=== PATIENT | female | born 1980 | race Caucasian/White ===

== ENCOUNTER 2016-05-24 18:01 | Emergency (ER) | payer OTHER ==
[~2016-05-24 18:01] MED LIST: ADDERALL15 MG PO; ALPRAZOLAM0.5 MG PO; ASACOL HD800 MG PO; CARAFATE EQUIVAL1 GM PO; CARBAMAZEPINE100 M1 PO; CELEBREX200 MG PO; HYCET1 ML PO; IBUPROFEN400 MG PO; IMITREX100 MG PO; MECLIZINE HCL25 M1 PO; MIRTAZAPINE PO; NICOTINE T21 MG/24 H TOP; PANTOPRAZOLE SO40 MG PO; PERCOCET1 TA2 PO; PHENERGAN EQUIV25 M1 PR; PROTONIX40 MG PO; TEGRETOL200 MG PO
--- NOTE | 2016-05-24 18:35 | ED CLINICAL REPORT ---
Clinical Report - Physicians/Mid Levels [facility] [address] [place] [address] 05/24/2016 18:02 Patient: SHYANN MONET Time Seen: 18:10; initial patient contact, initial documentation, patient care assumed. Arrived- By private vehicle. Historian- patient. HISTORY OF PRESENT ILLNESS Chief Complaint: HEADACHE and MIGRAINE HEADACHE. Is still present. This started today. It was abrupt in onset and has been constant. It is described as similar to previous headaches, "pain" and diffuse. Has had neck pain and located in the facial region. At its maximum, severity described as severe. When seen in the E.D., severity described as severe. The patient has had severe photophobia of the right eye and left eye. There has been no eye redness or discharge, matting or foreign body sensation. She has had nausea. She has had vomiting. The vomiting has occurred numerous times and has been bilious. No feculent emesis, blood-tinged emesis, coffee-grounds emesis, frankly bloody emesis or unusually dark emesis. No preceding symptoms, blurred vision, numbness or weakness. No recent travel. Similar symptoms previously: Occasionally, as bad. Recent medical care: Not recently seen/assessed. REVIEW OF SYSTEMS No fever, sinus pressure, ear pain, sore throat or head injury. No difficulty breathing or abdominal pain. All systems otherwise negative, except as recorded above. PAST HISTORY See nurses notes. PROBLEMS: Nausea. Abdominal Pain. Vomiting. Migraine Headache. Otitis Externa. ADHD - Attention Deficit Hyperactivity Disorder. Endometrioseis. --18:06 Cassie Aguiar R.N. ADDITIONAL SURGERIES: Appendectomy. Cholecystectomy. Laparoscopy. Tonsillectomy. --18:06 Cassie Aguiar R.N. SOCIAL HISTORY Heavy tobacco smoker. Occasional alcohol use. No drug use. No recent travel. Is a local resident. She lives with spouse. FAMILY HISTORY Negative. ADDITIONAL NOTES The nursing notes have been reviewed with agreement regarding the chief complaint, HPI, ROS, PMH and patient medications and allergies. PHYSICAL EXAM Vital Signs: 05/24/2016 18:05 BP: 136/76. HR: 97. RR: 18. O2 saturation: 98%. Temp: 97.5 F. Pain level now: 910. Have been reviewed as normal and appear to be correct. Appearance: Alert. No acute distress. Eyes: Pupils equal, round and reactive to light. Eyes normal inspection. ENT: Ears normal. Nose normal. Pharynx normal. Neck: Normal inspection. Neck supple. CVS: Normal heart rate and rhythm. Heart sounds normal. Pulses normal. Respiratory: No respiratory distress. Breath sounds normal. Abdomen: Soft and nontender. No organomegaly. Back: Normal inspection. Skin: Skin warm and dry. Normal skin color. No rash. Normal skin turgor. Extremities: Extremities exhibit normal ROM. No lower extremity edema. Neuro: Oriented X 3. Alert. Mood/affect normal. Speech normal. Cranial nerves normal (as tested). No cerebellar findings. No motor deficit. No sensory deficit. PROGRESS AND PROCEDURES Patient counseled in person regarding the patient's stable condition and diagnosis. Differential Diagnosis: I considered migraine, cluster headache, subarachnoid hemorrhage, intracranial bleed, vascular malformation, cerebral aneurysm, vascular dissection, vasculitis, temporal arteritis, encephalitis, brain abscess, sinusitis, dental etiology, influenza, viral syndrome, analgesic abuse, hypoglycemia and trigeminal neuralgia as a possible cause of headache in this patient. This is a partial list of diagnoses considered. Above considerations are based on history and physical exam. Differential diagnosis was discussed with patient. Disposition: Discharged home in good and improved condition (18:35). Condition: good and stable. CLINICAL IMPRESSION Acute migraine headache without aura- refractory to treatment. No status migrainosus. Not poorly controlled. INSTRUCTIONS Warnings: GENERAL WARNINGS: Return or contact your physician immediately if your condition worsens or changes unexpectedly, if not improving as expected, or if other problems arise. SPECIFICALLY, return if you develop fever, vomiting, numbness, weakness, difficulty thinking, visual disturbances, fainting or extreme fatigue. Prescription Medications: Zofran 4 mg: Take 1 orally every six hours as needed for nausea/vomiting. Dispense ten (10). No refills. Substitution is permissible. Fioricet: Take 1-2 orally every 4 hours as needed for headache. Dispense twenty (20). No refills. Substitution is permissible. Follow-up: Follow up with your doctor in about three days as needed. Call for an appointment. Summary of care provided to patient. Understanding of the discharge instructions verbalized by patient. (Electronically signed by Berna Bui A.R.N.P. 05/24/2016 19:45)
--- NOTE | 2016-05-24 18:35 | ED ORDER SUMMARY ---
..... Patient: SHYANN MONET OrderSheet VisitID: [id number] [place] [address] 36y, F Registration Date/Time: 05/24/2016 ORDER SHEET Weight: 63.5 kg (stated) Allergies: Aspirin GENERAL ORDERS: MEDICATION ORDERS: Toradol IM 60 mg (NOW) (18:19 05/24/2016 HBivens A.R.N.P.) (18:45 JSanders R.N.) Benadryl IM 50 mg (NOW) (18:20 05/24/2016 HBivens A.R.N.P.) (18:33 JSanders R.N.) - (Reglan 10mg im stat please) (18:20 05/24/2016 HBivens A.R.N.P.) (18:30 JSanders R.N.) IV FLUIDS: ORDER SHEET NOTES: [Electronically signed by Cassie Aguiar R.N. (19:17 05/24/2016)] [Electronically signed by Berna BuiRMohinderN.PMohinder (19:45 05/24/2016)] [Electronically locked/signed by Cassie Aguiar R.N. (19:17 05/24/2016)]
--- NOTE | 2016-05-24 18:35 | ED ORDER SUMMARY ---
..... Patient: SHYANN MONET OrderSheet [facility] VisitID: [id number] [place] [address] 36y, F Registration Date/Time: 05/24/2016 ORDER SHEET Weight: 63.5 kg (stated) Allergies: Aspirin GENERAL ORDERS: MEDICATION ORDERS: Toradol IM 60 mg (NOW) (18:19 05/24/2016 HBivens A.R.N.P.) (18:45 JSanders R.N.) Benadryl IM 50 mg (NOW) (18:20 05/24/2016 HBivens A.R.N.P.) (18:33 JSanders R.N.) - (Reglan 10mg im stat please) (18:20 05/24/2016 HBivens A.R.N.P.) (18:30 JSanders R.N.) IV FLUIDS: ORDER SHEET NOTES: [Electronically signed by Cassie Aguiar R.N. (19:17 05/24/2016)] [Electronically signed by Berna BuiRMohinderN.PMohinder (19:45 05/24/2016)] [Electronically locked/signed by Cassie Aguiar R.N. (19:17 05/24/2016)]
--- NOTE | 2016-05-24 18:35 | ED NURSING NOTES ---
Clinical Report - Nurses [facility] [address] [place] [address] 05/24/2016 18:02 Patient: SHYANN MONET TRIAGE Triage time 18:May 24 2016. Acuity: LEVEL 4. Chief Complaint: MIGRAINE HEADACHE. SEPSIS SCREEN: Sepsis Screen. Negative (no infection suspected/documented). ELLEN COMA SCORE: [place] Coma Scale: 15- eyes open spontaneously (4); best verbal response- oriented x 4 (5); best motor response- obeys commands (6). --18:09 Cassie Aguiar R.N. 18:05 05/24/16. BP: 136/76 (regular adult cuff) taken on the left arm, while lying. HR: 97. RR: 18. O2 saturation: 98% on room air. Temp: 97.5 F (oral). Pain level now: 11/04. --18:09 Cassie Aguiar R.N. Weight: 63.5 kg stated. Height/Length: 67 inches Per Patient. BMI: 21.9. --18:08 Cassie Aguiar R.N. Medications None. --18:06 Cassie Aguiar R.N. Allergies Aspirin. --18:06 Cassie Aguiar R.N. History Arrived by private vehicle. Historian: family. Accompanied by family. This started today 9 AM this morning. She has had nausea and vomiting. 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 PAST MEDICAL HX: Headaches. Immunizations: up-to-date. Last normal menstrual period- 1 weeks ago. SOCIAL HX: Current every day heavy tobacco smoker- 1 pack per day. Occasional alcohol use; consumes wine. No infectious disease exposure. ABUSE ASSESSMENT: No report of abuse. --18:09 Cassie Aguiar R.N. PROBLEMS: Nausea. Abdominal Pain. Vomiting. Migraine Headache. Otitis Externa. ADHD - Attention Deficit Hyperactivity Disorder. Endometrioseis. --18:06 Cassie Aguiar R.N. ADDITIONAL SURGERIES: Appendectomy. Cholecystectomy. Laparoscopy. Tonsillectomy. --18:06 Cassie Aguiar R.N. Interventions ID band on patient. To treatment room. --18:09 Cassie Aguiar R.N. PHYSICAL ASSESSMENT 18:10 05/24/16. To room via wheelchair. GENERAL / NEURO / PSYCH: Oriented X 4. Appears in pain. Speech within normal limits. HEENT: Pupils equal, round and reactive to light. RESPIRATORY: Respirations not labored. CVS: Capillary refill less than 2 seconds. GI / : The patient has had constant nausea. Emesis noted. Has vomited numerous times (few hours ago). Abdomen soft and nontender. SKIN: Skin is warm. --18:10 Cassie Aguiar R.N. NURSING PROGRESS NOTES 18:11 05/24/16. The plan of care for this patient has been created. Patient gowned. Head of bed elevated. Reassurance given. Lights dimmed. Two patient identifiers checked. Call light placed in reach. Side rails up x 1. Bed placed in lowest position. Brakes of bed on. Patient ready for evaluation- chart flagged and ED physician notified. --18:11 Cassie Aguiar R.N. 18:30 05/24/2016 Reglan (Metoclopramide HCl) IM 10 mg given. Given in the right ventral gluteus. Allergies verified and confirmed 5 rights. --18:30 Cassie Aguiar R.N. 18:33 05/24/2016 Benadryl (DiphenhydrAMINE HCl) IM 50 mg given. Given in the right gluteus fabien. Allergies verified, confirmed 5 rights and sedative warning given to the patient. --18:33 Cassie Aguiar R.N. ( mom sitting by patients bedside supportive). --18:34 Cassie Aguiar R.N. 18:45 05/24/2016 Toradol (Ketorolac Tromethamine) IM 60 mg given. Given in the right ventral gluteus. Allergies verified and confirmed 5 rights. --18:45 Cassie Aguiar R.N. DISPOSITION / DISCHARGE 19:15 05/24/16. The patient left prior to discharge education being provided. ( Patient left prior to discharge). --19:15 Cassie Aguiar R.N. ( Went to discharge patient and room was empty, no sign of mother and patient). --19:16 Cassie Aguiar R.N. Locked/Released at 05/24/2016 19:17 by Cassie Aguiar R.N.
--- NOTE | 2016-05-24 18:35 | ED NURSING NOTES ---
Clinical Report - Nurses [facility] [address] [place] [address] 05/24/2016 18:02 Patient: SHYANN MONET TRIAGE Triage time 18:May 24 2016. Acuity: LEVEL 4. Chief Complaint: MIGRAINE HEADACHE. SEPSIS SCREEN: Sepsis Screen. Negative (no infection suspected/documented). ELLEN COMA SCORE: [place] Coma Scale: 15- eyes open spontaneously (4); best verbal response- oriented x 4 (5); best motor response- obeys commands (6). --18:09 Cassie Aguiar R.N. 18:05 05/24/16. BP: 136/76 (regular adult cuff) taken on the left arm, while lying. HR: 97. RR: 18. O2 saturation: 98% on room air. Temp: 97.5 F (oral). Pain level now: 11/04. --18:09 Cassie Aguiar R.N. Weight: 63.5 kg stated. Height/Length: 67 inches Per Patient. BMI: 21.9. --18:08 Cassie Aguiar R.N. Medications None. --18:06 Cassie Aguiar R.N. Allergies Aspirin. --18:06 Cassie Aguiar R.N. History Arrived by private vehicle. Historian: family. Accompanied by family. This started today 9 AM this morning. She has had nausea and vomiting. 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 PAST MEDICAL HX: Headaches. Immunizations: up-to-date. Last normal menstrual period- 1 weeks ago. SOCIAL HX: Current every day heavy tobacco smoker- 1 pack per day. Occasional alcohol use; consumes wine. No infectious disease exposure. ABUSE ASSESSMENT: No report of abuse. --18:09 Cassie Aguiar R.N. PROBLEMS: Nausea. Abdominal Pain. Vomiting. Migraine Headache. Otitis Externa. ADHD - Attention Deficit Hyperactivity Disorder. Endometrioseis. --18:06 Cassie Aguiar R.N. ADDITIONAL SURGERIES: Appendectomy. Cholecystectomy. Laparoscopy. Tonsillectomy. --18:06 Cassie Aguiar R.N. Interventions ID band on patient. To treatment room. --18:09 Cassie Aguiar R.N. PHYSICAL ASSESSMENT 18:10 05/24/16. To room via wheelchair. GENERAL / NEURO / PSYCH: Oriented X 4. Appears in pain. Speech within normal limits. HEENT: Pupils equal, round and reactive to light. RESPIRATORY: Respirations not labored. CVS: Capillary refill less than 2 seconds. GI / : The patient has had constant nausea. Emesis noted. Has vomited numerous times (few hours ago). Abdomen soft and nontender. SKIN: Skin is warm. --18:10 Cassie Aguiar R.N. NURSING PROGRESS NOTES 18:11 05/24/16. The plan of care for this patient has been created. Patient gowned. Head of bed elevated. Reassurance given. Lights dimmed. Two patient identifiers checked. Call light placed in reach. Side rails up x 1. Bed placed in lowest position. Brakes of bed on. Patient ready for evaluation- chart flagged and ED physician notified. --18:11 Cassie Aguiar R.N. 18:30 05/24/2016 Reglan (Metoclopramide HCl) IM 10 mg given. Given in the right ventral gluteus. Allergies verified and confirmed 5 rights. --18:30 Cassie Aguiar R.N. 18:33 05/24/2016 Benadryl (DiphenhydrAMINE HCl) IM 50 mg given. Given in the right gluteus fabien. Allergies verified, confirmed 5 rights and sedative warning given to the patient. --18:33 Cassie Aguiar R.N. ( mom sitting by patients bedside supportive). --18:34 Cassie Aguiar R.N. 18:45 05/24/2016 Toradol (Ketorolac Tromethamine) IM 60 mg given. Given in the right ventral gluteus. Allergies verified and confirmed 5 rights. --18:45 Cassie Aguiar R.N. DISPOSITION / DISCHARGE 19:15 05/24/16. The patient left prior to discharge education being provided. ( Patient left prior to discharge). --19:15 Cassie Aguiar R.N. ( Went to discharge patient and room was empty, no sign of mother and patient). --19:16 Cassie Aguiar R.N. Locked/Released at 05/24/2016 19:17 by Cassie Aguiar R.N.
--- NOTE | 2016-05-24 19:45 | ED MED RECONCILIATION SUMMARY ---
Patient: SHYANN MONET Medication Reconciliation Report [facility] VisitID: [id number] [address] [place] [address] 36y, F Registration Date/Time: 05/24/2016 Weight: 63.5 kg Height/Length: 67 in. BMI: 21.9 ALLERGIES: Aspirin The patient's Home Medications are listed below: NONE. The source(s) of the original Home Medication information: Not obtained. The following Medications were given to the patient in the Emergency Department: Reglan [IM] IM 10 mg, administered: 05/24/2016 6:30:00 PM Benadryl [IM] IM 50 mg, administered: 05/24/2016 6:33:00 PM Toradol [IM] IM 60 mg, administered: 05/24/2016 6:45:00 PM The following Medications were prescribed to the patient: Zofran 4 mg: Take 1 orally every six hours as needed for nausea/vomiting. Dispense ten (10). No refills. Substitution is permissible. -- Berna Bui, A.R.N.P. Fioricet: Take 1-2 orally every 4 hours as needed for headache. Dispense twenty (20). No refills. Substitution is permissible. -- Berna Bui A.R.N.P.
--- NOTE | 2016-05-24 19:45 | ED MAR SUMMARY ---
..... Medication Administration Record [facility] [address] [place] [address] Patient: SHYANN MONET Visit ID: [id number] 36y, F Weight: 63.5 kg Height/Length: 67 in BMI: 21.9 ALLERGIES: Aspirin Given 18:30 05/24/2016 Cassie Aguiar RMoon Medication Administered: REGLAN [IM] (METOCLOPRAMIDE HCL), Dose: 10 mg IM. Medication Ordered: - (Reglan 10mg im stat please). Given 18:33 05/24/2016 Cassie Aguiar RMohinderNMohinder Medication Administered: BENADRYL [IM] (DIPHENHYDRAMINE HCL), Dose: 50 mg IM. Medication Ordered: Benadryl IM 50 mg (NOW). Given 18:45 05/24/2016 Cassie Aguiar, RMohinderNMohinder Medication Administered: TORADOL [IM] (KETOROLAC TROMETHAMINE), Dose: 60 mg IM. Medication Ordered: Toradol IM 60 mg (NOW).
--- NOTE | 2016-05-24 19:45 | ED MED RECONCILIATION SUMMARY ---
Patient: SHYANN MONET Medication Reconciliation Report [facility] VisitID: [id number] [address] [place] [address] 36y, F Registration Date/Time: 05/24/2016 Weight: 63.5 kg Height/Length: 67 in. BMI: 21.9 ALLERGIES: Aspirin The patient's Home Medications are listed below: NONE. The source(s) of the original Home Medication information: Not obtained. The following Medications were given to the patient in the Emergency Department: Reglan [IM] IM 10 mg, administered: 05/24/2016 6:30:00 PM Benadryl [IM] IM 50 mg, administered: 05/24/2016 6:33:00 PM Toradol [IM] IM 60 mg, administered: 05/24/2016 6:45:00 PM The following Medications were prescribed to the patient: Zofran 4 mg: Take 1 orally every six hours as needed for nausea/vomiting. Dispense ten (10). No refills. Substitution is permissible. -- Berna Bui, A.R.N.P. Fioricet: Take 1-2 orally every 4 hours as needed for headache. Dispense twenty (20). No refills. Substitution is permissible. -- Berna Bui A.R.N.P.
--- NOTE | 2016-05-24 19:45 | ED DISCHARGE INSTRUCTIONS ---
Patient: SHYANN MONET General Instructions [facility] VisitID: [id number] [place] [address] 36y, F Registration Date/Time: 05/24/2016 Acute migraine headache without aura- refractory to treatment. No status migrainosus. Not poorly controlled. INSTRUCTIONS Warnings: GENERAL WARNINGS: Return or contact your physician immediately if your condition worsens or changes unexpectedly, if not improving as expected, or if other problems arise. SPECIFICALLY, return if you develop fever, vomiting, numbness, weakness, difficulty thinking, visual disturbances, fainting or extreme fatigue. Prescription Medications: Zofran 4 mg: Take 1 orally every six hours as needed for nausea/vomiting. Dispense ten (10). No refills. Substitution is permissible. Fioricet: Take 1-2 orally every 4 hours as needed for headache. Dispense twenty (20). No refills. Substitution is permissible. Follow-up: Follow up with your doctor in about three days as needed. Call for an appointment. Summary of care provided to patient. Understanding of the discharge instructions verbalized by patient. ADDITIONAL INFORMATION Migraine Headache Migraine headaches are related to changes in blood flow to the brain. This causes throbbing or constant pain on one or both sides of the head. The pain may last from a few hours to several days. There is usually nausea, vomiting, sensitivity to light and sound, and blurred vision. A migraine attack may be triggered by emotional stress, hormone changes during the menstrual cycle, oral contraceptives, alcohol use, certain foods containing tyramine, eye strain, weather changes, missing meals, or too little or too much sleep. Home Care For This Headache: 1) If you were given pain medicine for this headache, do not drive yourself home . Arrange for a ride, instead. When you get home, try to sleep. You should feel much better when you wake up. 2) Migraine headaches may improve with an ice pack on the forehead or at the base of the skull. Heat to the back of your neck may relieve any neck spasm. 3) Drink only clear liquids or eat a very light diet to avoid nausea/vomiting until symptoms improve. Preventing Future Headaches: 1) Pay attention to those factors that seem to trigger your headache. Try to avoid them when you can. If you have frequent headaches, it is useful to keep a diary of what you were doing, feeling or eating in the hours before each attack. Show this to your doctor to help find the cause of your headaches. a) If you feel that stress is a factor in your headaches, look at the sources of stress in your life. Find ways to release the build-up of those stresses by using regular exercise, relaxation methods (yoga, meditation), bio-feedback or simply taking time-out for yourself. For more information about this, consult your doctor or go to a local bookstore and review books and tapes on this subject. b) Tyramine is a substance present in the following foods : chocolate, yogurt, all cheeses except cottage cheese and cream cheese. smoked or pickled fish and meat (including penn, caviar, bologna, pepperoni, salami), liver, avocados, bananas, figs, raisins, and red wine. Be aware that these foods may trigger a migraine in some persons. Try taking these foods out of your diet for 1-2 months to see if this reduces headache frequency. Treating Future Attacks: 1) At the first sign of a headache, take time out if possible. Find a quiet, dark, comfortable place to sit or lie down. Let yourself relax or sleep. 2) An ice pack on the forehead or area of greatest pain may help. If you are having muscle spasm and tightness of the neck, a heating pad and massage to this area may be helpful. 3) If you have been prescribed a medicine to stop a migraine headache, use this at the very first warning sign of the headache (aura or initial pain) for best results. Follow Up with your doctor if the headache is not better within the next 24 hours. If you have frequent headaches you should discuss a treatment plan with your primary care doctor. Ask if you can have medicine to take at home the next time you get a bad headache. Poorly controlled chronic headaches may require a referral to a neurologist (headache specialist). Get Prompt Medical Attention if any of the following occur: Your head pain gets worse, or does not improve within 24 hours Repeated vomiting (cant keep liquids down) Sinus or ear or throat pain (not already reported) Fever of 100.4 F (38 C) or higher, or as directed by your healthcare provider Stiff neck Extreme drowsiness, confusion or fainting Dizziness, vertigo (dizziness with spinning sensation) Weakness of an arm or leg or one side of the face Difficulty with speech or vision Ondansetron Oral disintegrating tablet What is this medicine? ONDANSETRON (on RENETTA se tavon) is used to treat nausea and vomiting caused by chemotherapy. It is also used to prevent or treat nausea and vomiting after surgery. How should I use this medicine? These tablets are made to dissolve in the mouth. Do not try to push the tablet through the foil backing. With dry hands, peel away the foil backing and gently remove the tablet. Place the tablet in the mouth and allow it to dissolve, then swallow. While you may take these tablets with water, it is not necessary to do so. Talk to your finance executive regarding the use of this medicine in children. Special care may be needed. What side effects may I notice from receiving this medicine? Side effects that you should report to your doctor or health acute care nursing assistant as soon as possible: allergic reactions like skin rash, itching or hives, swelling of the face, lips, or tongue breathing problems dizziness fast or irregular heartbeat feeling faint or lightheaded, falls fever and chills swelling of the hands and feet tightness in the chest Side effects that usually do not require medical attention (report to your doctor or health acute care nursing assistant if they continue or are bothersome): constipation or diarrhea headache What may interact with this medicine? Do not take this medicine with any of the following medications: -apomorphine -cisapride -dofetilide -dronedarone -pimozide -thioridazine -ziprasidone This medicine may also interact with the following medications: -carbamazepine -phenytoin -rifampicin -tramadol -other medicines that prolong the QT interval (cause an abnormal heart rhythm) What if I miss a dose? If you miss a dose, take it as soon as you can. If it is almost time for your next dose, take only that dose. Do not take double or extra doses. Where should I keep my medicine? Keep out of the reach of children. Store between 2 and 30 degrees C (36 and 86 degrees F). Throw away any unused medicine after the expiration date. What should I tell my health care provider before I take this medicine? They need to know if you have any of these conditions: heart disease history of irregular heartbeat liver disease low levels of magnesium or potassium in the blood an unusual or allergic reaction to ondansetron, granisetron, other medicines, foods, dyes, or preservatives or trying to get breast-feeding What should I watch for while using this medicine? Check with your doctor or health acute care nursing assistant as soon as you can if you have any sign of an allergic reaction. Butalbital, Acetaminophen, Caffeine Oral tablet What is this medicine? ACETAMINOPHEN; BUTALBITAL; CAFFEINE (a set a JONATHAN guilherme fen; byoo JOSE bi jose; KAF een) is a pain reliever. It is used to treat tension headaches. How should I use this medicine? Take this medicine by mouth with a full glass of water. Follow the directions on the prescription label. If the medicine upsets your stomach, take the medicine with food or milk. Do not take more than you are told to take. Talk to your finance executive regarding the use of this medicine in children. Special care may be needed. What side effects may I notice from receiving this medicine? Side effects that you should report to your doctor or health acute care nursing assistant as soon as possible: allergic reactions like skin rash, itching or hives, swelling of the face, lips, or tongue breathing problems confusion feeling faint or lightheaded, falls redness, blistering, peeling or loosening of the skin, including inside the mouth seizure stomach pain yellowing of the eyes or skin Side effects that usually do not require medical attention (report to your doctor or health acute care nursing assistant if they continue or are bothersome): constipation nausea, vomiting What may interact with this medicine? alcohol or medicines that contain alcohol antidepressants, especially MAOIs like isocarboxazid, phenelzine, tranylcypromine, and selegiline antihistamines benzodiazepines carbamazepine isoniazid medicines for pain like pentazocine, buprenorphine, butorphanol, nalbuphine, tramadol, and propoxyphene muscle relaxants naltrexone phenobarbital, phenytoin, and fosphenytoin phenothiazines like perphenazine, thioridazine, chlorpromazine, mesoridazine, fluphenazine, prochlorperazine, promazine, and trifluoperazine voriconazole What if I miss a dose? If you miss a dose, take it as soon as you can. If it is almost time for your next dose, take only that dose. Do not take double or extra doses. Where should I keep my medicine? Keep out of the reach of children. This medicine can be abused. Keep your medicine in a safe place to protect it from theft. Do not share this medicine with anyone. Selling or giving away this medicine is dangerous and against the law. Store at room temperature between 15 and 30 degrees C (59 and 86 degrees F). Keep container tightly closed. Protect from light. Throw away any unused medicine after the expiration date. What should I tell my health care provider before I take this medicine? They need to know if you have any of these conditions: drink more than 3 alcohol-containing drinks per day drug abuse or addiction heart or circulation problems kidney disease or problems going to the bathroom liver disease lung disease, asthma, or breathing problems porphyria an unusual or allergic reaction to acetaminophen, butalbital or other barbiturates, caffeine, other medicines, foods, dyes, or preservatives or trying to get breast-feeding What should I watch for while using this medicine? Tell your doctor or health acute care nursing assistant if your pain does not go away, if it gets worse, or if you have new or a different type of pain. You may develop tolerance to the medicine. Tolerance means that you will need a higher dose of the medicine for pain relief. Tolerance is normal and is expected if you take the medicine for a long time. Do not suddenly stop taking your medicine because you may develop a severe reaction. Your body becomes used to the medicine. This does NOT mean you are addicted. Addiction is a behavior related to getting and using a drug for a non-medical reason. If you have pain, you have a medical reason to take pain medicine. Your doctor will tell you how much medicine to take. If your doctor wants you to stop the medicine, the dose will be slowly lowered over time to avoid any side effects. You may get drowsy or dizzy when you first start taking the medicine or change doses. Do not drive, use machinery, or do anything that may be dangerous until you know how the medicine affects you. Stand or sit up slowly. Do not take other medicines that contain acetaminophen with this medicine. Always read labels carefully. If you have questions, ask your doctor or pharmacist. If you take too much acetaminophen get medical help right away. Too much acetaminophen can be very dangerous and cause liver damage. Even if you do not have symptoms, it is important to get help right away. You have been given the following additional information: Headache, Migraine (Classical) Ondansetron Oral disintegrating tablet Butalbital, Acetaminophen, Caffeine Oral tablet (Electronically signed by Berna Bui A.R.N.P. 05/24/2016 19:45)
--- NOTE | 2016-05-24 19:45 | ED MAR SUMMARY ---
..... Medication Administration Record [facility] [address] [place] [address] Patient: SHYANN MONET Visit ID: [id number] 36y, F Weight: 63.5 kg Height/Length: 67 in BMI: 21.9 ALLERGIES: Aspirin Given 18:30 05/24/2016 Cassie Aguiar RMoon Medication Administered: REGLAN [IM] (METOCLOPRAMIDE HCL), Dose: 10 mg IM. Medication Ordered: - (Reglan 10mg im stat please). Given 18:33 05/24/2016 Cassie Aguiar RMohinderNMohinder Medication Administered: BENADRYL [IM] (DIPHENHYDRAMINE HCL), Dose: 50 mg IM. Medication Ordered: Benadryl IM 50 mg (NOW). Given 18:45 05/24/2016 Cassie Aguiar, RMohinderNMohinder Medication Administered: TORADOL [IM] (KETOROLAC TROMETHAMINE), Dose: 60 mg IM. Medication Ordered: Toradol IM 60 mg (NOW).
== END 2016-05-24 19:15 | disposition left against medical advice (07) ==
LOC: ED SRH 18:01
DX: G43.919 Migraine, unspecified, intractable, without status migrainosus (principal); F17.200 Nicotine dependence, unspecified, uncomplicated

== ENCOUNTER 2016-07-02 12:34 | Outpatient (CLI) | payer OTHER ==
--- NOTE | 2016-07-02 13:05 | DIAGNOSTIC IMAGING REPORT ---
PROCEDURE: XR CHEST 2 VIEW INDICATION: BRONCHITIS TECHNIQUE: Two views. COMPARISON: 10/17/2012 FINDINGS: The cardiomediastinal contour is stable, within normal limits. The central vasculature is not congested. The lungs are clear without focal consolidation, pleural effusion or pneumothorax. The visualized osseous structures are intact. Surgical clips in the gallbladder fossa. IMPRESSION: 1. No evidence of acute cardiopulmonary disease. 2. Stable exam compared to prior study.
== END 2016-07-02 23:00 ==
LOC: XR SRH 12:34
DX: J40 Bronchitis, not specified as acute or chronic (principal)

== ENCOUNTER 2016-07-07 18:56 | Emergency (ER) | payer OTHER ==
--- NOTE | 2016-07-07 20:22 | DIAGNOSTIC IMAGING REPORT ---
PROCEDURE: XR CERVICAL SPINE 2 OR 3 VIEW INDICATION: NECK TRAUMA/INJURY TECHNIQUE: Three views. COMPARISON: None. FINDINGS: Normal alignment without fracture. Straightening of the cervical spine. Odontoid, lateral masses of C1 and prevertebral soft tissues are normal. IMPRESSION: 1. Straightening of the cervical spine suggestive of muscular spasm.
--- NOTE | 2016-07-07 20:23 | DIAGNOSTIC IMAGING REPORT ---
PROCEDURE: XR THORACIC SPINE 2 VIEWS INDICATION: TRAUMA/INJURY TECHNIQUE: AP and lateral views. COMPARISON: None. FINDINGS: Normal alignment without fracture. Normal disc spaces. Paraspinal soft tissues are normal. IMPRESSION: 1. Normal thoracic spine.
--- NOTE | 2016-07-07 20:30 | ED ORDER SUMMARY ---
..... Patient: SHYANN MONET OrderSheet [facility] VisitID: [id number] [address] [place] [address] 36y, F Registration Date/Time: 07/07/2016 ORDER SHEET Weight: 66.2 kg (stated) Allergies: Aspirin GENERAL ORDERS: UA-Culture if indicated Urgent (19:24 07/07/2016 [facility]) (Ack 19:25 [facility] Room Clerk) (19:30 DDean R.N.) Urine Drug Screen Urgent (19:24 07/07/2016 [facility]) (Ack 19:25 [facility] Clerk) (19:30 DDean R.N.) Urine Urgent (19:24 07/07/2016 [facility]) (Ack 19:25 [facility] Clerk) (19:30 DDean R.N.) Cervical Spine 2 or 3V Urgent (19:51 07/07/2016 [facility]) (Ack 19:53 [facility] Clerk) (20:05 Dalton) Thoracic Spine 2V Urgent (19:52 07/07/2016 [facility]) (Ack 19:53 [facility] Clerk) (20:05 Dalton) MEDICATION ORDERS: Flexeril PO 10 mg (NOW) (19:37 07/07/2016 [facility]) (Ack 19:38 DDean R.N.) (19:54 DDean R.N.) Dilaudid IM 2 mg (HIGH ALERT MEDICATION, NOW) (20:27 07/07/2016 [facility]) (Ack 20:30 DDean R.N.) (20:39 DDean R.N.) Phenergan IM 25 mg (HIGH ALERT MEDICATION, NOW) (20:28 07/07/2016 [facility]) (Ack 20:30 DDean R.N.) (20:39 DDean R.N.) IV FLUIDS: ORDER SHEET NOTES: [Electronically signed by Alessio Mahoney R.N. (21:43 07/07/2016)] [Electronically signed by Wilder Decker DO (21:50 07/07/2016)] [Electronically locked/signed by Alessio Mahoney R.N. (21:43 07/07/2016)]
--- NOTE | 2016-07-07 20:30 | ED CLINICAL REPORT ---
Clinical Report - Physicians/Mid Levels [facility] [address] [place] [place] [address] 07/07/2016 18:58 Patient: SHYANN MONET Time Seen: 19:10. Arrived- By private vehicle. Historian- patient. HISTORY OF PRESENT ILLNESS Chief Complaint: NECK PAIN and BACK PAIN. This started last night and is still present. It was gradual in onset and has been waxing/waning. At its maximum, severity described as moderate. When seen in the E.D., severity described as moderate. Modifying factors- worsened by movement. Relieved by rest. No fatigue or weakness. (Pt states she slipped and fell onto her back last night. She has persistent stiffness and soreness). Similar symptoms previously: Recent medical care: The patient was seen recently at this facility in the emergency department. ( Seen about 1 1/2 months ago at [facility] ED for migraine CARMEN). REVIEW OF SYSTEMS No fever, sore throat, sinus drainage, nasal congestion or cough. No difficulty breathing, chest pain, abdominal pain, nausea or vomiting. No diarrhea, black stools, bloody stools, difficulty with urination or abnormal bleeding. No headache. The patient has had upper and mid back pain. She has had difficulty with ambulation. All systems otherwise negative, except as recorded above. PAST HISTORY PROBLEMS: PCP: [facility] Noah Abdominal Pain. Vomiting. Migraine Headache. Seizure Disorder. Otitis Externa. Cellulitis. Chronic Headache. ADHD - Attention Deficit Hyperactivity Disorder. Endometriosis. Bronchitis. Headache. SURGERIES: Appendectomy. Cholecystectomy. Laparoscopy. Tonsillectomy. Medications: None. Allergies: Aspirin. SOCIAL HISTORY Smoker- current status unknown. Occasional alcohol use. No drug use. ADDITIONAL NOTES The nursing notes have been reviewed. PHYSICAL EXAM Vital Signs: 07/07/2016 19:15 BP: 131/83. HR: 103. RR: 20. O2 saturation: 100%. Temp: 98.0 F. Pain level now: 9/10. Appearance: Alert. Patient in moderate distress. Eyes: Eyes normal inspection. No scleral icterus or pale conjunctivae. ENT: Pharynx normal. No pharyngeal erythema or tonsillar exudate. The mucous membranes are not dry. Neck: Normal inspection. Neck supple. Mild soft tissue tenderness. Vertebral tenderness. CVS: Normal heart rate and rhythm. Heart sounds normal. Pulses normal. Respiratory: No respiratory distress. Breath sounds normal. Chest nontender. Abdomen: No visible injury. Soft and nontender. No mass. Back: Normal inspection. Moderate tenderness in the right upper and mid and left upper and mid thoracic area (midline and lateral tenderness). No CVA tenderness. Skin: Skin warm and dry. Normal skin color. No rash. Normal skin turgor. Extremities: Extremities exhibit normal ROM. No calf tenderness. No lower extremity edema. Neuro: Oriented X 3. No motor deficit. No sensory deficit. Reflexes normal. Reflex exam: right patellar 2+, left patellar 2+, right Achilles 1+ and left Achilles 1+. LABS, X-RAYS, AND EKG C-Spine X-rays: No acute findings. Soft tissues normal. No fracture or subluxation. No bony lesion. Views: 3 view C-spine series. Technique: good. The X-rays were interpreted contemporaneously by me. T-Spine X-rays: Normal anterior contour line and posterior contour line. No fracture present. No subluxation present. Soft tissues normal. No bony lesion. Spinous processes aligned. Normal disc spaces. Views: 2 view T-spine series. Technique: good. The X-rays were interpreted contemporaneously by me. Laboratory Tests: UA-Culture if indicated: (MAGDA: 07/07/2016 19:15) ( MsgRcvd 07/07/2016 19:54) Final results Test Result Flag Units (Reference) URINE COLOR YELLOW URINE APPEARANCE CLEAR URINE GLUCOSE NEGATIVE (NEGATIVE) URINE BILIRUBIN NEGATIVE (NEGATIVE) URINE KETONE NEGATIVE (NEGATIVE) URINE SPECIFIC GRAVITY 1.010 (1.010-1.030) URINE PH 6.0 (5.0-8.0) URINE PROTEIN NEGATIVE (NEGATIVE) URINE UROBILINOGEN 0.2 EU/dL (0.2-1.0) URINE NITRITE NEGATIVE (NEGATIVE) URINE BLOOD NEGATIVE (NEGATIVE) URINE LEUK ESTERASE NEGATIVE (NEGATIVE) URINE RBC NONE SEEN rbc/hpf (0-1) URINE WBC NONE SEEN wbc/hpf (0-1) URINE EPITHELIAL CELLS 3-5 EPI/hpf (0-5) URINE BACTERIA NONE SEEN (NONE SEEN) URINE COMMENT CULT NOT INDICATED URINE CULTURES ARE SET-UP BASED ON THE FOLLOWING CRITERIA:POSITIVE NITRITEPOSITIVE LEUKOCYTE ESTERASEGREATER THAN 10 WHITE BLOOD CELLSMODERATE (2+) OR GREATER BACTERIA Urine: (MAGDA: 07/07/2016 19:15) ( [facility] 07/07/2016 19:38) Final results Test Result Flag Units (Reference) URINE NEGATIVE Urine Drug Screen: (MAGDA: 07/07/2016 19:15) ( [facility] 07/07/2016 20:20) Final results Test Result Flag Units (Reference) AMPHETAMINE/METHAMPHETAMINE NEGATIVE (NEGATIVE) BARBITURATE NEGATIVE (NEGATIVE) BENZODIAZEPINE NEGATIVE (NEGATIVE) CANNABINOID POSITIVE H (NEGATIVE) COCAINE NEGATIVE (NEGATIVE) ECSTASY NEGATIVE (NEGATIVE) METHADONE NEGATIVE (NEGATIVE) OPIATE NEGATIVE (NEGATIVE) The urine drug screen is a qualitative screening test fordrug overdose and abuse. All screen results should beconsidered as presumptive.Drugs screened for are as follows:BenzodiazepinesCocaineAmphetamines/MetamphetaminesTHC (Tetrahydrocannabinol)OpiatesBarbituratesEcstasyMethadonePositive results are unconfirmed. For confirmation, notifythe lab for the specimen to be sent to the reference lab.All confirmations must be performed by a differentmethodology.The ingestion of natural herbal and plant productscontaining Ephedra/Ephedra metabolites can produce in urineone or more substances capable of cross reacting withamphetamine/methamphetamine immunoassays. These testsprovide a preliminary result only. A more specificalternative chemical method must be used to obtain aconfirmed analytical result. . Pulse Oximetry: 07/07/2016 19:15 O2 saturation: 100%. (FIO2 - room air). Interpretation: normal. PROGRESS AND PROCEDURES Course of Care: Dilaudid 2 mg with Phenergan 25 mg IM given. Flexeril 10 mg without improvement PO given. No signs of fracture or cord compression or spinal cord injury now. No reason to suspect spinal / epidural infectious process / discitis. Patient/family counseled. Old medical records ordered. (5 visits to [facility] ED with narcotic management in past 12 months). Disposition: Discharged. Condition: stable and improved. CLINICAL IMPRESSION Chronic substance abuse- tobacco (cigarettes), marijuana. No intoxication. Acute traumatic thoracic back pain associated with muscle strain. Acute cervical strain. Fall on same level by slipping. INSTRUCTIONS Rest. Do not work for three days. Drink plenty of fluids. Do not smoke. Seek medical help to quit smoking. Warnings: Further evaluation is necessary. It is very important to follow up with a physician. SEDATIVE MEDICATION: You were given sedative medication during your visit. Do not drive or operate dangerous machinery. CONTROLLED SUBSTANCE WARNINGS. GENERAL WARNINGS: Return or contact your physician immediately if your condition worsens or changes unexpectedly, if not improving as expected, or if other problems arise. Your Current Medications: CONTINUE TAKING THE FOLLOWING MEDICATIONS: "charlotes web" (hemp extract) for seizures *. Motrin 400mg last dose 1600*. None*. Tylenol 650mg last dose 10am*. Prescription Medications: Oxycodone/APAP 5 mg/325 mg: take 1-2 tablets orally every 6 hours as needed for pain. Dispense ten (10). No refill. Flexeril 10 mg: Take 1 orally every 8 hours as needed for muscle spasm. Dispense twenty (20). No refills. Substitution is permissible. Follow-up with: [facility], , , [address], , [place], [address] Follow up in two days. (Electronically signed by Wilder Decker DO 07/07/2016 21:50)
--- NOTE | 2016-07-07 20:30 | ED NURSING NOTES ---
Clinical Report - Nurses [facility] [address] [place] [address] 07/07/2016 18:58 Patient: SHYANN MONET TRIAGE Triage time 1910. Acuity: LEVEL 3. Chief Complaint: FALL (running and playing hide and seek - fell and landed on plastic playground area equipment last night). ELLEN COMA SCORE: [place] Coma Scale: 15- eyes open spontaneously (4); best verbal response- oriented x 4 (5); best motor response- obeys commands (6). --19:21 Kat Guevara R.N. 19:15 07/07/16. BP: 131/83. HR: 103. RR: 20. O2 saturation: 100%. Temp: 98.0 F. Pain level now: 11/04. --19:21 Kat Guevara R.N. Acuity: LEVEL 3. --20:20 Kat Guevara R.N. Weight: 66.2 kg stated. Height/Length: 67 inches Per Patient. BMI: 22.9. --19:16 Kat Guevara R.N. Medications None. --19:07 Cassie Aguiar R.N. "charlotes web" (hemp extract) for seizures . --19:20 Kat Guevara R.N. Tylenol 650mg last dose 10am. --19:21 Kat Guevara R.N. Motrin 400mg last dose 1600. --19:21 Kat Guevara R.N. Allergies Aspirin. --19:07 Cassie Aguiar R.N. History Arrived by private vehicle. Historian: patient. Accompanied by (dropped off). Primary physician (Domitila). Location of injuries: neck and back. This occurred last night. She has had neck pain and trouble walking. No loss of consciousness. SOCIAL HX: Heavy tobacco smoker (cigarette)- less than 1 pack per day. Occasional alcohol use. History of drug use: marijuana. --19:21 Kat Guevara R.N. PROBLEMS: Nausea. Abdominal Pain. Vomiting. Migraine Headache. Seizure Disorder. Otitis Externa. Cellulitis. Chronic Headache. ADHD - Attention Deficit Hyperactivity Disorder. LNMP - Last Normal Menstrual Period. Endometrioseis. Bronchitis. Headache. --19:07 Cassie Aguiar R.N. ADDITIONAL SURGERIES: Appendectomy. Cholecystectomy. Laparoscopy. Tonsillectomy. --19:07 Cassie Aguiar R.N. Interventions ID band on patient. To treatment room. --19:21 Kat Guevara R.N. PHYSICAL ASSESSMENT 19:10. Ambulatory to room. GENERAL / NEURO / PSYCH: Alert. Oriented X 4. Appears in pain and anxious. HEENT: Neck. Head. RESPIRATORY: Respirations not labored. CVS: Capillary refill less than 2 seconds. GI / : Abdomen soft. SKIN: Skin intact. Skin is warm and dry. BACK: Back. --19:23 Kat Guevara R.N. NURSING PROGRESS NOTES 17:10. Cold pack applied. Patient gowned. Reassurance given. Patient identifiers checked. Call light placed in reach. Side rails up. Bed placed in lowest position. Patient ready for evaluation- chart flagged. --19:22 Kat Guevara R.N. correction to prior entry - time of assessment 1909 NOT 1710. --19:24 Kat Guevara R.N. 19:22. Patient ID band checked for patient name and birthdate: patient confirmed. Clean catch urine collected; sample sent to lab for urinalysis and culture. Specimen labeled in the presence of the patient. --19:24 Kat Guevara R.N. 19:39 07/07/2016 Flexeril (Cyclobenzaprine HCl) PO Tablets 10 mg given. Allergies verified and confirmed 5 rights. --19:54 Kat Guevara R.N. 19:54 07/07/16. Patient transported to radiology by stretcher with tech. --19:54 Kat Guevara R.N. 20:03. Patient returned from radiology by stretcher with tech. --20:14 Kat Guevara R.N. 20:18 07/07/16. ( Pt states pain isn't any better after po meds. ERMD notified). --20:18 Kat Guevara R.N. 20:38 07/07/2016 Dilaudid (HYDROmorphone HCl PF) IM 2 mg given. Given in the right ventral gluteus. --20:39 Kat Guevara R.N. 20:39 07/07/2016 Phenergan (Promethazine HCl) IM 25 mg given. Given in the right ventral gluteus. Sedative warning given to the patient. --20:39 Kat Guevara R.N. 21:37. The patient is calm and resting quietly. GENERAL / NEURO / PSYCH: Alert. Oriented X 4. RESPIRATORY: No respiratory distress. EXTREMITIES: Neuro-vascular status intact to the extremity. --21:43 Alessio Mahoney R.N. DISPOSITION / DISCHARGE Departure time: 21:40. Condition at departure: stable. ( Discharge instructions reviewed by Za GREEN). No learning barriers present. Discharge instructions provided and reviewed with the patient. Reviewed medication(s) side effects, precautions, dosing and course information. Prescription(s) given to the patient. Patient verbalized understanding. Written instructions provided in Greek. The patient was discharged home and accompanied by coal crusher operator. She left the Emergency Department ambulatory and via private vehicle. [employer] driving. FALL RISK ASSESSMENT: Fall risk assessment completed. No fall risk identified. --21:42 Alessio Mahoney R.N. 21:40 07/07/16. BP: 115/79. HR: 73. RR: 16. O2 saturation: 97% on room air. Pain level now: 07/04. --21:42 Alessio Mahoney R.N. Locked/Released at 07/07/2016 21:43 by Alessio Mahoney R.N.
--- NOTE | 2016-07-07 20:30 | ED CLINICAL REPORT ---
Clinical Report - Physicians/Mid Levels [facility] [address] [place] [address] 07/07/2016 18:58 Patient: SHYANN MONET Time Seen: 19:10. Arrived- By private vehicle. Historian- patient. HISTORY OF PRESENT ILLNESS Chief Complaint: NECK PAIN and BACK PAIN. This started last night and is still present. It was gradual in onset and has been waxing/waning. At its maximum, severity described as moderate. When seen in the E.D., severity described as moderate. Modifying factors- worsened by movement. Relieved by rest. No fatigue or weakness. (Pt states she slipped and fell onto her back last night. She has persistent stiffness and soreness). Similar symptoms previously: Recent medical care: The patient was seen recently at this facility in the emergency department. ( Seen about 1 1/2 months ago at [facility] ED for migraine CARMEN). REVIEW OF SYSTEMS No fever, sore throat, sinus drainage, nasal congestion or cough. No difficulty breathing, chest pain, abdominal pain, nausea or vomiting. No diarrhea, black stools, bloody stools, difficulty with urination or abnormal bleeding. No headache. The patient has had upper and mid back pain. She has had difficulty with ambulation. All systems otherwise negative, except as recorded above. PAST HISTORY PROBLEMS: PCP: [facility] Noah Abdominal Pain. Vomiting. Migraine Headache. Seizure Disorder. Otitis Externa. Cellulitis. Chronic Headache. ADHD - Attention Deficit Hyperactivity Disorder. Endometriosis. Bronchitis. Headache. SURGERIES: Appendectomy. Cholecystectomy. Laparoscopy. Tonsillectomy. Medications: None. Allergies: Aspirin. SOCIAL HISTORY Smoker- current status unknown. Occasional alcohol use. No drug use. ADDITIONAL NOTES The nursing notes have been reviewed. PHYSICAL EXAM Vital Signs: 07/07/2016 19:15 BP: 131/83. HR: 103. RR: 20. O2 saturation: 100%. Temp: 98.0 F. Pain level now: 9/10. Appearance: Alert. Patient in moderate distress. Eyes: Eyes normal inspection. No scleral icterus or pale conjunctivae. ENT: Pharynx normal. No pharyngeal erythema or tonsillar exudate. The mucous membranes are not dry. Neck: Normal inspection. Neck supple. Mild soft tissue tenderness. Vertebral tenderness. CVS: Normal heart rate and rhythm. Heart sounds normal. Pulses normal. Respiratory: No respiratory distress. Breath sounds normal. Chest nontender. Abdomen: No visible injury. Soft and nontender. No mass. Back: Normal inspection. Moderate tenderness in the right upper and mid and left upper and mid thoracic area (midline and lateral tenderness). No CVA tenderness. Skin: Skin warm and dry. Normal skin color. No rash. Normal skin turgor. Extremities: Extremities exhibit normal ROM. No calf tenderness. No lower extremity edema. Neuro: Oriented X 3. No motor deficit. No sensory deficit. Reflexes normal. Reflex exam: right patellar 2+, left patellar 2+, right Achilles 1+ and left Achilles 1+. LABS, X-RAYS, AND EKG C-Spine X-rays: No acute findings. Soft tissues normal. No fracture or subluxation. No bony lesion. Views: 3 view C-spine series. Technique: good. The X-rays were interpreted contemporaneously by me. T-Spine X-rays: Normal anterior contour line and posterior contour line. No fracture present. No subluxation present. Soft tissues normal. No bony lesion. Spinous processes aligned. Normal disc spaces. Views: 2 view T-spine series. Technique: good. The X-rays were interpreted contemporaneously by me. Laboratory Tests: UA-Culture if indicated: (MAGDA: 07/07/2016 19:15) ( MsgRcvd 07/07/2016 19:54) Final results Test Result Flag Units (Reference) URINE COLOR YELLOW URINE APPEARANCE CLEAR URINE GLUCOSE NEGATIVE (NEGATIVE) URINE BILIRUBIN NEGATIVE (NEGATIVE) URINE KETONE NEGATIVE (NEGATIVE) URINE SPECIFIC GRAVITY 1.010 (1.010-1.030) URINE PH 6.0 (5.0-8.0) URINE PROTEIN NEGATIVE (NEGATIVE) URINE UROBILINOGEN 0.2 EU/dL (0.2-1.0) URINE NITRITE NEGATIVE (NEGATIVE) URINE BLOOD NEGATIVE (NEGATIVE) URINE LEUK ESTERASE NEGATIVE (NEGATIVE) URINE RBC NONE SEEN rbc/hpf (0-1) URINE WBC NONE SEEN wbc/hpf (0-1) URINE EPITHELIAL CELLS 3-5 EPI/hpf (0-5) URINE BACTERIA NONE SEEN (NONE SEEN) URINE COMMENT CULT NOT INDICATED URINE CULTURES ARE SET-UP BASED ON THE FOLLOWING CRITERIA:POSITIVE NITRITEPOSITIVE LEUKOCYTE ESTERASEGREATER THAN 10 WHITE BLOOD CELLSMODERATE (2+) OR GREATER BACTERIA Urine: (MAGDA: 07/07/2016 19:15) ( [facility] 07/07/2016 19:38) Final results Test Result Flag Units (Reference) URINE NEGATIVE Urine Drug Screen: (MAGDA: 07/07/2016 19:15) ( [facility] 07/07/2016 20:20) Final results Test Result Flag Units (Reference) AMPHETAMINE/METHAMPHETAMINE NEGATIVE (NEGATIVE) BARBITURATE NEGATIVE (NEGATIVE) BENZODIAZEPINE NEGATIVE (NEGATIVE) CANNABINOID POSITIVE H (NEGATIVE) COCAINE NEGATIVE (NEGATIVE) ECSTASY NEGATIVE (NEGATIVE) METHADONE NEGATIVE (NEGATIVE) OPIATE NEGATIVE (NEGATIVE) The urine drug screen is a qualitative screening test fordrug overdose and abuse. All screen results should beconsidered as presumptive.Drugs screened for are as follows:BenzodiazepinesCocaineAmphetamines/MetamphetaminesTHC (Tetrahydrocannabinol)OpiatesBarbituratesEcstasyMethadonePositive results are unconfirmed. For confirmation, notifythe lab for the specimen to be sent to the reference lab.All confirmations must be performed by a differentmethodology.The ingestion of natural herbal and plant productscontaining Ephedra/Ephedra metabolites can produce in urineone or more substances capable of cross reacting withamphetamine/methamphetamine immunoassays. These testsprovide a preliminary result only. A more specificalternative chemical method must be used to obtain aconfirmed analytical result. . Pulse Oximetry: 07/07/2016 19:15 O2 saturation: 100%. (FIO2 - room air). Interpretation: normal. PROGRESS AND PROCEDURES Course of Care: Dilaudid 2 mg with Phenergan 25 mg IM given. Flexeril 10 mg without improvement PO given. No signs of fracture or cord compression or spinal cord injury now. No reason to suspect spinal / epidural infectious process / discitis. Patient/family counseled. Old medical records ordered. (5 visits to [facility] ED with narcotic management in past 12 months). Disposition: Discharged. Condition: stable and improved. CLINICAL IMPRESSION Chronic substance abuse- tobacco (cigarettes), marijuana. No intoxication. Acute traumatic thoracic back pain associated with muscle strain. Acute cervical strain. Fall on same level by slipping. INSTRUCTIONS Rest. Do not work for three days. Drink plenty of fluids. Do not smoke. Seek medical help to quit smoking. Warnings: Further evaluation is necessary. It is very important to follow up with a physician. SEDATIVE MEDICATION: You were given sedative medication during your visit. Do not drive or operate dangerous machinery. CONTROLLED SUBSTANCE WARNINGS. GENERAL WARNINGS: Return or contact your physician immediately if your condition worsens or changes unexpectedly, if not improving as expected, or if other problems arise. Your Current Medications: CONTINUE TAKING THE FOLLOWING MEDICATIONS: "charlotes web" (hemp extract) for seizures *. Motrin 400mg last dose 1600*. None*. Tylenol 650mg last dose 10am*. Prescription Medications: Oxycodone/APAP 5 mg/325 mg: take 1-2 tablets orally every 6 hours as needed for pain. Dispense ten (10). No refill. Flexeril 10 mg: Take 1 orally every 8 hours as needed for muscle spasm. Dispense twenty (20). No refills. Substitution is permissible. Follow-up with: [facility], , , [address], , [place], [id number] Follow up in two days. (Electronically signed by Wilder Decker DO 07/07/2016 21:50)
--- NOTE | 2016-07-07 20:30 | ED ORDER SUMMARY ---
..... Patient: SHYANN MONET OrderSheet [facility] VisitID: [id number] [address] [place] [address] 36y, F Registration Date/Time: 07/07/2016 ORDER SHEET Weight: 66.2 kg (stated) Allergies: Aspirin GENERAL ORDERS: UA-Culture if indicated Urgent (19:24 07/07/2016 [facility]) (Ack 19:25 [employer] World History Teacher) (19:30 DDean R.N.) Urine Drug Screen Urgent (19:24 07/07/2016 [facility]) (Ack 19:25 [employer] History Teacher) (19:30 DDean R.N.) Urine Urgent (19:24 07/07/2016 [facility]) (Ack 19:25 [employer] World History Teacher) (19:30 DDean R.N.) Cervical Spine 2 or 3V Urgent (19:51 07/07/2016 [facility]) (Ack 19:53 [employer] World History Teacher) (20:05 Dalton) Thoracic Spine 2V Urgent (19:52 07/07/2016 [facility]) (Ack 19:53 [employer] World History Teacher) (20:05 Dalton) MEDICATION ORDERS: Flexeril PO 10 mg (NOW) (19:37 07/07/2016 [facility]) (Ack 19:38 DDean R.N.) (19:54 DDean R.N.) Dilaudid IM 2 mg (HIGH ALERT MEDICATION, NOW) (20:27 07/07/2016 [facility]) (Ack 20:30 DDean R.N.) (20:39 DDean R.N.) Phenergan IM 25 mg (HIGH ALERT MEDICATION, NOW) (20:28 07/07/2016 [facility]) (Ack 20:30 DDean R.N.) (20:39 DDean R.N.) IV FLUIDS: ORDER SHEET NOTES: [Electronically signed by Alessio Mahoney R.N. (21:43 07/07/2016)] [Electronically signed by Wilder Decker DO (21:50 07/07/2016)] [Electronically locked/signed by Alessio Mahoney R.N. (21:43 07/07/2016)]
--- NOTE | 2016-07-07 20:30 | ED NURSING NOTES ---
Clinical Report - Nurses [facility] [address] [place] [address] 07/07/2016 18:58 Patient: SHYANN MNOET TRIAGE Triage time 1910. Acuity: LEVEL 3. Chief Complaint: FALL (running and playing hide and seek - fell and landed on plastic playground area equipment last night). ELLEN COMA SCORE: [place] Coma Scale: 15- eyes open spontaneously (4); best verbal response- oriented x 4 (5); best motor response- obeys commands (6). --19:21 Kat Guevara R.N. 19:15 07/07/16. BP: 131/83. HR: 103. RR: 20. O2 saturation: 100%. Temp: 98.0 F. Pain level now: 11/04. --19:21 Kat Guevara R.N. Acuity: LEVEL 3. --20:20 Kat Guevara R.N. Weight: 66.2 kg stated. Height/Length: 67 inches Per Patient. BMI: 22.9. --19:16 Kat Guevara R.N. Medications None. --19:07 Cassie Aguiar R.N. "charlotes web" (hemp extract) for seizures . --19:20 Kat Guevara R.N. Tylenol 650mg last dose 10am. --19:21 Kat Guevara R.N. Motrin 400mg last dose 1600. --19:21 Kat Guevara R.N. Allergies Aspirin. --19:07 Cassie Aguiar R.N. History Arrived by private vehicle. Historian: patient. Accompanied by (dropped off). Primary physician (Domitila). Location of injuries: neck and back. This occurred last night. She has had neck pain and trouble walking. No loss of consciousness. SOCIAL HX: Heavy tobacco smoker (cigarette)- less than 1 pack per day. Occasional alcohol use. History of drug use: marijuana. --19:21 Kat Guevara R.N. PROBLEMS: Nausea. Abdominal Pain. Vomiting. Migraine Headache. Seizure Disorder. Otitis Externa. Cellulitis. Chronic Headache. ADHD - Attention Deficit Hyperactivity Disorder. LNMP - Last Normal Menstrual Period. Endometrioseis. Bronchitis. Headache. --19:07 Cassie Aguiar R.N. ADDITIONAL SURGERIES: Appendectomy. Cholecystectomy. Laparoscopy. Tonsillectomy. --19:07 Cassie Aguiar R.N. Interventions ID band on patient. To treatment room. --19:21 Kat Guevara R.N. PHYSICAL ASSESSMENT 19:10. Ambulatory to room. GENERAL / NEURO / PSYCH: Alert. Oriented X 4. Appears in pain and anxious. HEENT: Neck. Head. RESPIRATORY: Respirations not labored. CVS: Capillary refill less than 2 seconds. GI / : Abdomen soft. SKIN: Skin intact. Skin is warm and dry. BACK: Back. --19:23 Kat Guevara R.N. NURSING PROGRESS NOTES 17:10. Cold pack applied. Patient gowned. Reassurance given. Patient identifiers checked. Call light placed in reach. Side rails up. Bed placed in lowest position. Patient ready for evaluation- chart flagged. --19:22 Kat Guevara R.N. correction to prior entry - time of assessment 1909 NOT 1710. --19:24 Kat Guevara R.N. 19:22. Patient ID band checked for patient name and birthdate: patient confirmed. Clean catch urine collected; sample sent to lab for urinalysis and culture. Specimen labeled in the presence of the patient. --19:24 Kat Guevara R.N. 19:39 07/07/2016 Flexeril (Cyclobenzaprine HCl) PO Tablets 10 mg given. Allergies verified and confirmed 5 rights. --19:54 Kat Guevara R.N. 19:54 07/07/16. Patient transported to radiology by stretcher with tech. --19:54 Kat Guevara R.N. 20:03. Patient returned from radiology by stretcher with tech. --20:14 Kat Guevara R.N. 20:18 07/07/16. ( Pt states pain isn't any better after po meds. ERMD notified). --20:18 Kat Guevara R.N. 20:38 07/07/2016 Dilaudid (HYDROmorphone HCl PF) IM 2 mg given. Given in the right ventral gluteus. --20:39 Kat Guevara R.N. 20:39 07/07/2016 Phenergan (Promethazine HCl) IM 25 mg given. Given in the right ventral gluteus. Sedative warning given to the patient. --20:39 Kat Guevara R.N. 21:37. The patient is calm and resting quietly. GENERAL / NEURO / PSYCH: Alert. Oriented X 4. RESPIRATORY: No respiratory distress. EXTREMITIES: Neuro-vascular status intact to the extremity. --21:43 Alessio Mahoney R.N. DISPOSITION / DISCHARGE Departure time: 21:40. Condition at departure: stable. ( Discharge instructions reviewed by Za GREEN). No learning barriers present. Discharge instructions provided and reviewed with the patient. Reviewed medication(s) side effects, precautions, dosing and course information. Prescription(s) given to the patient. Patient verbalized understanding. Written instructions provided in Chinese. The patient was discharged home and accompanied by high density press operator. She left the Emergency Department ambulatory and via private vehicle. Dozer Operator driving. FALL RISK ASSESSMENT: Fall risk assessment completed. No fall risk identified. --21:42 Alessio Mahoney R.N. 21:40 07/07/16. BP: 115/79. HR: 73. RR: 16. O2 saturation: 97% on room air. Pain level now: 07/04. --21:42 Alessio Mahoney R.N. Locked/Released at 07/07/2016 21:43 by Alessio Mahoney R.N.
--- NOTE | 2016-07-07 21:50 | ED MAR SUMMARY ---
..... Medication Administration Record [facility] [address] [place] [address] Patient: SHYANN MONET Visit ID: [id number] 36y, F Weight: 66.2 kg Height/Length: 67 in BMI: 22.9 ALLERGIES: Aspirin Given 19:39 07/07/2016 Kat Guevara RMoon Medication Administered: FLEXERIL [PO] (CYCLOBENZAPRINE HCL), Dose: 10 mg Tablets PO. Medication Ordered: Flexeril PO 10 mg (NOW). Given 20:38 07/07/2016 Kat Guevara RMohinderN. Medication Administered: DILAUDID [IM] (HYDROMORPHONE HCL PF), Dose: 2 mg IM. Medication Ordered: Dilaudid IM 2 mg (HIGH ALERT MEDICATION, NOW). Given 20:39 07/07/2016 Kat Guevara RMohinderN. Medication Administered: PHENERGAN [IM] (PROMETHAZINE HCL), Dose: 25 mg IM. Medication Ordered: Phenergan IM 25 mg (HIGH ALERT MEDICATION, NOW).
--- NOTE | 2016-07-07 21:50 | ED MED RECONCILIATION SUMMARY ---
Patient: SHYANN MONET Medication Reconciliation Report [facility] VisitID: [id number] [address] [place] [address] 36y, F Registration Date/Time: 07/07/2016 Weight: 66.2 kg Height/Length: 67 in. BMI: 22.9 ALLERGIES: Aspirin The patient's Home Medications are listed below: CONTINUE TAKING THE FOLLOWING MEDICATIONS: "Trusera web" (hemp extract) for seizures Motrin 400mg last dose 1600 Tylenol 650mg last dose 10am The source(s) of the original Home Medication information: Not obtained. The following Medications were given to the patient in the Emergency Department: Flexeril [PO] PO 10 mg, administered: 07/07/2016 7:39:00 PM Dilaudid [IM] IM 2 mg, administered: 07/07/2016 8:38:00 PM Phenergan [IM] IM 25 mg, administered: 07/07/2016 8:39:00 PM The following Medications were prescribed to the patient: Oxycodone/APAP 5 mg/325 mg: take 1-2 tablets orally every 6 hours as needed for pain. Dispense ten (10). No refill. -- Wilder Decker DO Flexeril 10 mg: Take 1 orally every 8 hours as needed for muscle spasm. Dispense twenty (20). No refills. Substitution is permissible. -- Wilder Decker DO
--- NOTE | 2016-07-07 21:50 | ED DISCHARGE INSTRUCTIONS ---
Patient: SHYANN MONET General Instructions [facility] VisitID: [id number] [address] [address] 36y, F Registration Date/Time: 07/07/2016 Chronic substance abuse- tobacco (cigarettes), marijuana. No intoxication. Acute traumatic thoracic back pain associated with muscle strain. Acute cervical strain. Fall on same level by slipping. INSTRUCTIONS Rest. Do not work for three days. Drink plenty of fluids. Do not smoke. Seek medical help to quit smoking. Warnings: Further evaluation is necessary. It is very important to follow up with a physician. SEDATIVE MEDICATION: You were given sedative medication during your visit. Do not drive or operate dangerous machinery. CONTROLLED SUBSTANCE WARNINGS. GENERAL WARNINGS: Return or contact your physician immediately if your condition worsens or changes unexpectedly, if not improving as expected, or if other problems arise. Your Current Medications: CONTINUE TAKING THE FOLLOWING MEDICATIONS: "charlotes web" (hemp extract) for seizures *. Motrin 400mg last dose 1600*. None*. Tylenol 650mg last dose 10am*. Prescription Medications: Oxycodone/APAP 5 mg/325 mg: take 1-2 tablets orally every 6 hours as needed for pain. Dispense ten (10). No refill. Flexeril 10 mg: Take 1 orally every 8 hours as needed for muscle spasm. Dispense twenty (20). No refills. Substitution is permissible. Follow-up with: [facility], , , [address], , [place], [id number] Follow up in two days. ADDITIONAL INFORMATION Mechanical Fall You have had a fall today. It appears that the cause is mechanical. That means that you slipped, tripped or lost your balance. If your fall had been due to fainting or a seizure, further tests would be required. Home Care: Rest today and resume your normal activities when you are feeling back to normal. If you were injured during the fall, follow the advice from your doctor regarding care of your injury. You may use acetaminophen (Tylenol) or ibuprofen (Motrin, Advil) to control pain, unless another pain medicine was prescribed. [NOTE: If you have chronic liver or kidney disease or ever had a stomach ulcer or GI bleeding, talk with your doctor before using these medicines.] Fall Prevention: Was there anything that caused your fall that can be fixed, removed, or replaced? Make your home safe by keeping walkways clear of objects you may trip over. Use non-slip pads under rugs. Do not walk in poorly lit areas. Do not stand on chairs or wobbly ladders. Use caution when reaching overhead or looking upward. This position can cause a loss of balance. Be sure your shoes fit properly, have non-slip bottoms and are in good condition. Be cautious when going up and down curbs, and walking on uneven sidewalks. If your balance is poor, consider using a cane or walker. Stay as active as you can. Balance, flexibility, strength, and endurance all come from exercise. They all play a role in preventing falls. Follow Up with your doctor or as advised by our staff. Get Prompt Medical Attention if any of the following occur: Repeated mechanical falls, or unexplained falls Dizziness, fainting or seizure Severe headache Chest pain or shortness of breath Palpitations (very rapid or very slow or irregular heartbeat) Blood in vomit, stools (black or red color) Weakness of an arm or leg or one side of the face Difficulty with speech or vision Neck Sprain Or Strain A sudden force that causes turning or bending of the neck (such as in a car accident) can stretch or tear muscles (strain) and ligaments (sprain) and cause neck pain. Sometimes neck pain occurs after a simple awkward movement. In either case, muscle spasm is commonly present and contributes to the pain. Unless you had a forceful physical injury (for example, a car accident or fall), X-rays are usually not ordered for the initial evaluation of neck pain. If pain continues and dose not respond to medical treatment, X-rays and other tests may be performed at a later time. Home care The following guidelines will help you care for your injury at home: You may feel more soreness and spasm the first few days after the injury. Reduce your activity level until symptoms begin to improve. When lying down, use a comfortable pillow that supports the head and keeps the spine in a neutral position. The position of the head should not be tilted forward or backward. Use ice packs (ice in a plastic bag, wrapped in a towel) to treat acute pain. Apply for 20 minutes every 24 hours during the first two days. Then, begin local heat (hot shower, hot bath or heating pad) andmassageto reduce muscle spasm. Some patients feel best alternating hot and cold treatments, or just staying with one method only. Do what feels the best to you and gives the most relief. You may use acetaminophen or ibuprofen to control pain, unless another pain medicine was prescribed.If you have chronic liver or kidney disease or ever had a stomach ulcer or GI bleeding, talk with your doctor before using these medicines. Follow-up care Follow up with your physician or this facility if your symptoms do not show signs of improvement. Physical therapy may be needed. If you had X-rays today, they didnt show any broken bones, breaks, or fractures. Sometimes fractures dont show up on the first X-ray. Bruises and sprains can sometimes hurt as much as a fracture. These injuries can take time to heal completely. If your symptoms dont improve or they get worse, talk with your doctor. You may need a repeat X-ray. When to seek medical care Get prompt medical attention if any of the following occur: Pain becomes worse or spreads into your arms Weakness or numbness in one or both arms How To Quit Smoking Smoking is one of the hardest habits to break. About half of all those who have ever smoked have been able to quit, and most of those (about 70%) who still smoke want to quit. Here are some of the best ways to stop smoking. Keep Trying: It takes most smokers about 8 tries before they are finally able to fully quit. So, the more often you try and fail, the better your chance of quitting the next time! So, don't give up! Go Cold [place]: Most ex-smokers quit cold turkey. Trying to cut back gradually doesn't seem to work as well, perhaps because it continues the smoking habit. Also, it is possible to fool yourself by inhaling more while smoking fewer cigarettes. This results in the same amount of nicotine in your body! Get Support: Support programs can make an important difference, especially for the heavy smoker. These groups offer lectures, methods to change your behavior and peer support. Call the free national Quitline for more information. 690-RQZP-MPW (591-607-8949). Low-cost or free programs are offered by many hospitals, local chapters of the [place] [employer] (415-686-3325) and the [employer] (533-851-4813). Support at home is important too. Non-smokers can help by offering praise and encouragement. If the smoker fails to quit, encourage them to try again! Hkpv-Nlq-Aayghyd Medicines: For those who can't quit on their own, Nicotine Replacement Therapy (NRT) may make quitting much easier. Certain aids such as the nicotine patch, gum and lozenge are available without a prescription. However, it is best to use these under the guidance of your doctor. The skin patch provides a steady supply of nicotine to the body. Nicotine gum and lozenge gives temporary bursts of low levels of nicotine. Both methods take the edge off the craving for cigarettes. WARNING: If you feel symptoms of nicotine overdose, such as nausea, vomiting, dizziness, weakness, or fast heartbeat, stop using these and see your doctor. Prescription Medicines: After evaluating your smoking patterns and prior attempts at quitting, your doctor may offer a prescription medicine such as bupropion (Zyban, Wellbutrin), varenicline (Chantix, Champix), a niocotine inhaler or nasal spray. Each has its unique advantage and side effects which your doctor can review with you. Health Benefits Of Quitting: The benefits of quitting start right away and keep improving the longer you go without smokin minutes: blood pressure and pulse return to normal 8 hours: oxygen levels return to normal 2 days: ability to smell and taste begins to improve as damaged nerves start to regrow 2-3 weeks: circulation and lung function improves 1-9 months: decreased cough, congestion and shortness of breath; less tired 1 year: risk of heart attack decreases by half 5 years: risk of lung cancer decreases by half; risk of stroke becomes the same as a non-smoker For information about how to quit smoking, visit the following links: National Cancer [place] , Clearing the Air, Quit Smoking Today - an online booklet. http://www.smokefree.gov/pubs/clearing_the_air.pdf Smokefree.gov http://smokefree.gov/ QuitNet http://www.quitnet.com/ Oxycodone Hydrochloride, Acetaminophen Oral tablet What is this medicine? ACETAMINOPHEN; OXYCODONE (a set a JONATHAN guilherme fen; ox i KOE done) is a pain reliever. It is used to treat mild to moderate pain. How should I use this medicine? Take this medicine by mouth with a full glass of water. Follow the directions on the prescription label. Take your medicine at regular intervals. Do not take your medicine more often than directed. Talk to your insurance underwriter sales regarding the use of this medicine in children. Special care may be needed. Patients over 65 years old may have a stronger reaction and need a smaller dose. What side effects may I notice from receiving this medicine? Side effects that you should report to your doctor or health care program director as soon as possible: allergic reactions like skin rash, itching or hives, swelling of the face, lips, or tongue breathing difficulties, wheezing confusion light headedness or fainting spells severe stomach pain yellowing of the skin or the whites of the eyes Side effects that usually do not require medical attention (report to your doctor or health care program director if they continue or are bothersome): dizziness drowsiness nausea vomiting What may interact with this medicine? alcohol antihistamines barbiturates like amobarbital, butalbital, butabarbital, methohexital, pentobarbital, phenobarbital, thiopental, and secobarbital benztropine drugs for bladder problems like solifenacin, trospium, oxybutynin, tolterodine, hyoscyamine, and methscopolamine drugs for breathing problems like ipratropium and tiotropium drugs for certain stomach or intestine problems like propantheline, homatropine methylbromide, glycopyrrolate, atropine, belladonna, and dicyclomine general anesthetics like etomidate, ketamine, nitrous oxide, propofol, desflurane, enflurane, halothane, isoflurane, and sevoflurane medicines for depression, anxiety, or psychotic disturbances medicines for sleep muscle relaxants naltrexone narcotic medicines (opiates) for pain phenothiazines like perphenazine, thioridazine, chlorpromazine, mesoridazine, fluphenazine, prochlorperazine, promazine, and trifluoperazine scopolamine tramadol trihexyphenidyl What if I miss a dose? If you miss a dose, take it as soon as you can. If it is almost time for your next dose, take only that dose. Do not take double or extra doses. Where should I keep my medicine? Keep out of the reach of children. This medicine can be abused. Keep your medicine in a safe place to protect it from theft. Do not share this medicine with anyone. Selling or giving away this medicine is dangerous and against the law. Store at room temperature between 20 and 25 degrees C (68 and 77 degrees F). Keep container tightly closed. Protect from light. This medicine may cause accidental overdose and if it is taken by other adults, children, or pets. Flush any unused medicine down the toilet to reduce the chance of harm. Do not use the medicine after the expiration date. What should I tell my health care provider before I take this medicine? They need to know if you have any of these conditions: brain tumor Crohn's disease, inflammatory bowel disease, or ulcerative colitis drink more than 3 alcohol containing drinks per day drug abuse or addiction head injury heart or circulation problems kidney disease or problems going to the bathroom liver disease lung disease, asthma, or breathing problems an unusual or allergic reaction to acetaminophen, oxycodone, other opioid analgesics, other medicines, foods, dyes, or preservatives or trying to get breast-feeding What should I watch for while using this medicine? Tell your doctor or health care program director if your pain does not go away, if it gets worse, or if you have new or a different type of pain. You may develop tolerance to the medicine. Tolerance means that you will need a higher dose of the medication for pain relief. Tolerance is normal and is expected if you take this medicine for a long time. Do not suddenly stop taking your medicine because you may develop a severe reaction. Your body becomes used to the medicine. This does NOT mean you are addicted. Addiction is a behavior related to getting and using a drug for a non-medical reason. If you have pain, you have a medical reason to take pain medicine. Your doctor will tell you how much medicine to take. If your doctor wants you to stop the medicine, the dose will be slowly lowered over time to avoid any side effects. You may get drowsy or dizzy. Do not drive, use machinery, or do anything that needs mental alertness until you know how this medicine affects you. Do not stand or sit up quickly, especially if you are an older patient. This reduces the risk of dizzy or fainting spells. Alcohol may interfere with the effect of this medicine. Avoid alcoholic drinks. There are different types of narcotic medicines (opiates) for pain. If you take more than one type at the same time, you may have more side effects. Give your health care provider a list of all medicines you use. Your doctor will tell you how much medicine to take. Do not take more medicine than directed. Call emergency for help if you have problems breathing. The medicine will cause constipation. Try to have a bowel movement at least every 2 to 3 days. If you do not have a bowel movement for 3 days, call your doctor or health care program director. Do not take Tylenol (acetaminophen) or medicines that have acetaminophen with this medicine. Too much acetaminophen can be very dangerous. Many nonprescription medicines contain acetaminophen. Always read the labels carefully to avoid taking more acetaminophen. Cyclobenzaprine Hydrochloride Oral tablet What is this medicine? CYCLOBENZAPRINE (sye kloe JAZ yanelis preen) is a muscle relaxer. It is used to treat muscle pain, spasms, and stiffness. How should I use this medicine? Take this medicine by mouth with a glass of water. Follow the directions on the prescription label. If this medicine upsets your stomach, take it with food or milk. Take your medicine at regular intervals. Do not take it more often than directed. Talk to your insurance underwriter sales regarding the use of this medicine in children. Special care may be needed. What side effects may I notice from receiving this medicine? Side effects that you should report to your doctor or health care program director as soon as possible: allergic reactions like skin rash, itching or hives, swelling of the face, lips, or tongue chest pain fast heartbeat hallucinations seizures vomiting Side effects that usually do not require medical attention (report to your doctor or health care program director if they continue or are bothersome): headache What may interact with this medicine? Do not take this medicine with any of the following medications: cisapride droperidol flecainide grepafloxacin halofantrine levomethadyl MAOIs like Carbex, Eldepryl, Marplan, Nardil, and Parnate nilotinib pimozide probucol sertindole This medicine may also interact with the following medications: abarelix alcohol contrast dyes dolasetron guanethidine medicines for cancer medicines for depression, anxiety, or psychotic disturbances medicines to treat an irregular heartbeat medicines used for sleep or numbness during surgery or procedure methadone octreotide ondansetron palonosetron phenothiazines like chlorpromazine, mesoridazine, prochlorperazine, thioridazine some medicines for infection like alfuzosin, chloroquine, clarithromycin, levofloxacin, mefloquine, pentamidine, troleandomycin tramadol vardenafil What if I miss a dose? If you miss a dose, take it as soon as you can. If it is almost time for your next dose, take only that dose. Do not take double or extra doses. Where should I keep my medicine? Keep out of the reach of children. Store at room temperature between 15 and 30 degrees C (59 and 86 degrees F). Keep container tightly closed. Throw away any unused medicine after the expiration date. What should I tell my health care provider before I take this medicine? They need to know if you have any of these conditions: heart disease, irregular heartbeat, or previous heart attack liver disease thyroid problem an unusual or allergic reaction to cyclobenzaprine, tricyclic antidepressants, lactose, other medicines, foods, dyes, or preservatives or trying to get breast-feeding What should I watch for while using this medicine? Check with your doctor or health care program director if your condition does not improve within 1 to 3 weeks. You may get drowsy or dizzy when you first start taking the medicine or change doses. Do not drive, use machinery, or do anything that may be dangerous until you know how the medicine affects you. Stand or sit up slowly. Your mouth may get dry. Drinking water, chewing sugarless gum, or sucking on hard candy may help. You have been given the following additional information: Fall, Mechanical Neck Sprain/Strain Smoking Cessation Oxycodone Hydrochloride, Acetaminophen Oral tablet Cyclobenzaprine Hydrochloride Oral tablet Rest. Do not work for three days. (Electronically signed by Wilder Decker DO 07/07/2016 21:50)
--- NOTE | 2016-07-07 21:50 | ED MAR SUMMARY ---
..... Medication Administration Record [facility] [address] [place] [address] Patient: SHYANN MONET Visit ID: [id number] 36y, F Weight: 66.2 kg Height/Length: 67 in BMI: 22.9 ALLERGIES: Aspirin Given 19:39 07/07/2016 Kat Guevara RMoon Medication Administered: FLEXERIL [PO] (CYCLOBENZAPRINE HCL), Dose: 10 mg Tablets PO. Medication Ordered: Flexeril PO 10 mg (NOW). Given 20:38 07/07/2016 Kat Guevara RMohinderN. Medication Administered: DILAUDID [IM] (HYDROMORPHONE HCL PF), Dose: 2 mg IM. Medication Ordered: Dilaudid IM 2 mg (HIGH ALERT MEDICATION, NOW). Given 20:39 07/07/2016 Kat Guevara RMohinderN. Medication Administered: PHENERGAN [IM] (PROMETHAZINE HCL), Dose: 25 mg IM. Medication Ordered: Phenergan IM 25 mg (HIGH ALERT MEDICATION, NOW).
--- NOTE | 2016-07-07 21:50 | ED MED RECONCILIATION SUMMARY ---
Patient: SHYANN MONET Medication Reconciliation Report [facility] VisitID: [id number] [address] [place] [address] 36y, F Registration Date/Time: 07/07/2016 Weight: 66.2 kg Height/Length: 67 in. BMI: 22.9 ALLERGIES: Aspirin The patient's Home Medications are listed below: CONTINUE TAKING THE FOLLOWING MEDICATIONS: "[employer] web" (hemp extract) for seizures Motrin 400mg last dose 1600 Tylenol 650mg last dose 10am The source(s) of the original Home Medication information: Not obtained. The following Medications were given to the patient in the Emergency Department: Flexeril [PO] PO 10 mg, administered: 07/07/2016 7:39:00 PM Dilaudid [IM] IM 2 mg, administered: 07/07/2016 8:38:00 PM Phenergan [IM] IM 25 mg, administered: 07/07/2016 8:39:00 PM The following Medications were prescribed to the patient: Oxycodone/APAP 5 mg/325 mg: take 1-2 tablets orally every 6 hours as needed for pain. Dispense ten (10). No refill. -- Wilder Decker DO Flexeril 10 mg: Take 1 orally every 8 hours as needed for muscle spasm. Dispense twenty (20). No refills. Substitution is permissible. -- Wilder Decker DO
== END 2016-07-07 21:40 | disposition home or self-care (01) ==
LOC: ED SRH 18:56
DX: S29.012A Strain of muscle and tendon of back wall of thorax, initial encounter (principal); S16.1XXA Strain of muscle, fascia and tendon at neck level, initial encounter; W01.0XXA Fall on same level from slipping, tripping and stumbling without subsequent striking against object, initial encounter; F12.10 Cannabis abuse, uncomplicated; Z88.6 Allergy status to analgesic agent; F17.210 Nicotine dependence, cigarettes, uncomplicated
CPT/HCPCS: 90004; 92760; 92761; 92762; 92763; 92764; 92765; 92766; 92767; 93070